=== PATIENT | female | born 1995 | race American Indian/Alaskan Native ===

== ENCOUNTER 2016-12-24 17:01 | Inpatient (IN) | payer MEDICAID ==
[2016-12-24] MEDS ORDERED: POLYCILLIN/NS 2 GM/100 ML 2 GM/100 ML BAG IV ONE (20:35)
[2016-12-24] MEDS ORDERED: MINERAL OIL PO PRN (20:35)
[2016-12-24] MEDS ORDERED: ZOFRAN IV PRN (20:35)
[2016-12-24] MEDS ORDERED: BRETHINE SUB-Q PRN (20:35)
[2016-12-24] MEDS ORDERED: XYLOCAINE 2% INFILTRATI ONE (20:35)
[2016-12-24] MEDS ORDERED: ePHEDrine SULFATE IV PRN (20:35)
[2016-12-24] MEDS ORDERED: BRETHINE IVP PRN (20:35)
--- NOTE | 2016-12-24 20:42 | History and Physical Report ---
History of Present Illness Date of examination: 12/24/16 Date of admission: 12/24/16 20:25 Chief complaint: My water broke at 4:30 History of present illness: 21-year-old presents with above complaints and issues, she is [facility] NURSE LIAISON patient. Patient was suspected rupture of membranes at 4:30 PM preceded by contractions. Denies vaginal bleeding plus movement. course has been unremarkable In triage, nitrazine was negative and pad was stained with brown fluid with no odor. Sono however shows CAITLYN of 4 She is GBS positive Past History Past Medical History: no pertinent history Past Surgical History: D&C (# 2 (2011 & 2014)) GAS PUMPER History: denies: chlamydia, gonorrhea, hepatitis B, hepatitis C, herpes, HIV , syphilis Social history: , full code. denies: smoking, alcohol abuse, prescription drug abuse, IV drug use - Obstetrical History Expected Date of Delivery: 12/29/16 Actual Gestation: 39 Week(s) 2 Day(s) : 3 Para: 0 Medications and Allergies Allergies Allergy/AdvReac Type Severity Reaction Status Date / Time No Known Allergies Allergy Unverified 12/24/16 17:56 Review of Systems Constitutional: no fever, no chills, no sweats, no fatigue, no weakness Cardiovascular: no chest pain, no lightheadedness, no shortness of breath, no dyspnea on exertion, no high blood pressure Respiratory: no cough with sputum, no shortness of breath, no dyspnea on exertion Gastrointestinal: no abdominal pain, no nausea, no vomiting Genitourinary: vaginal discharge, leakage of fluid, contractions (Intermittent painful contractions), no vaginal bleeding - Vital Signs Vital signs: Vital Signs Pulse BP 87 142/89 12/24/16 17:13 12/24/16 17:13 Temp Pulse Resp BP Pulse Ox 87 142/89 12/24/16 17:13 12/24/16 17:13 - Physical Exam Abdomen: Positive: normal appearance, soft. Negative: distention, tenderness, guarding, rigidity Genitourinary (Female): Positive: normal external genitalia Vagina: Positive: discharge Uterus: Positive: enlarged (EFW ~ 3800). Negative: tender Adnexa: both: normal Extremities: Positive: normal - Obstetrical FHR: category 1 Cervical Dilatation: 2 station: -3 Uterine Contraction Pattern: Regular Results All other labs normal. Assessment and Plan A: 21 y/o at 39+2 wks s/p SROM w/ Oligo -Cat 1 tracing P: -Admit -Routine labs -GBS prophylaxis -Epidural prn -Expectant mgt -Anticipate - Patient Problems (1) 39 weeks gestation of Current Visit: Yes Status: Acute (2) Spontaneous rupture of amniotic membranes Current Visit: Yes Status: Acute (3) Oligohydramnios due to rupture of membranes Current Visit: Yes Status: Acute
[2016-12-24] MEDS: LACTATED RINGERS 1,000 ML IV SCH (20:50)
[2016-12-24] MEDS ORDERED: PITOCin/NS 20 UNIT/1000ML DRIP 20 UNITS/1,000 ML BAG IV SCH (21:00)
[2016-12-24] MEDS ORDERED: PITOCin/NS 30 UNIT/500ML 30 UNITS/500 ML BAG IV SCH (21:00)
[2016-12-24 21:30] LABS: Hematocrit 32.9 % (30.3-42.9); Hemoglobin 10.6 gm/dl (10.1-14.3); Mean Corpuscular HGB Conc 32 % (30-34); Mean Corpuscular Volume 78 fl (79-97); Platelet Count 273 K/mm3 (140-440); Red Blood Count 4.23 M/mm3 (3.65-5.03); Red Cell Distribution Width 17.6 % (13.2-15.2); White Blood Count 14.7 K/mm3 (4.5-11.0)
[2016-12-24 21:36] LABS: Mean Corpuscular Hemoglobin 25 pg (28-32)
[2016-12-25] MEDS: POLYCILLIN/NS 1 GM/50 ML 1 GM/50 ML BAG IV SCH ×3 (01:45→09:35)
[2016-12-25] MEDS: SUBLIMAZE IV PRN ×3 (03:31→07:35)
[2016-12-25] MEDS ORDERED: TYLENOL PO ONE (03:34)
[2016-12-25] MEDS: LACTATED RINGERS 1,000 ML IV SCH (04:30)
--- NOTE | 2016-12-25 07:53 | Progress Note ---
Assessment and Plan A: 21 y/o at 39+3 wks s/p SROM w/ Oligo -Cat 1 tracing P: -Epidural now -Hold Pit for now due to logistics (ongoing C-S) -IUPC and re-start Pit after Epidural placed -Anticipate - Patient Problems (1) 39 weeks gestation of Current Visit: Yes Status: Acute (2) Spontaneous rupture of amniotic membranes Current Visit: Yes Status: Acute (3) Oligohydramnios due to rupture of membranes Current Visit: Yes Status: Acute Subjective - Subjective Date of service: 12/25/16 Interval history: Patient on Pit at 16 mu/min and very uncomfortable. She is 4 cm dilated and desires epidural Patient reports: movement normal, contractions, no new complaints, no loss of fluid, no vaginal bleeding Objective - Vital Signs Vital Signs: Vital Signs - 12hr 12/24/16 12/24/16 12/24/16 20:53 20:56 20:58 Temperature 99.8 F H Pulse Rate 89 89 Respiratory 18 Rate Blood Pressure 127/65 O2 Sat by Pulse 97 97 Oximetry 12/24/16 12/24/16 12/24/16 21:03 21:08 21:13 Temperature Pulse Rate 102 H 99 H 105 H Respiratory Rate Blood Pressure O2 Sat by Pulse 96 99 99 Oximetry 12/24/16 12/24/16 12/24/16 21:18 21:23 21:28 Temperature Pulse Rate 106 H 91 H 92 H Respiratory Rate Blood Pressure O2 Sat by Pulse 99 99 99 Oximetry 12/24/16 12/24/16 12/24/16 21:33 21:38 21:43 Temperature Pulse Rate 111 H 90 109 H Respiratory Rate Blood Pressure O2 Sat by Pulse 98 98 98 Oximetry 12/24/16 12/24/16 12/24/16 21:48 21:53 21:58 Temperature Pulse Rate 102 H 117 H 107 H Respiratory Rate Blood Pressure O2 Sat by Pulse 96 96 97 Oximetry 12/24/16 12/24/16 12/24/16 22:03 22:08 22:13 Temperature Pulse Rate 107 H 101 H 115 H Respiratory Rate Blood Pressure O2 Sat by Pulse 94 97 97 Oximetry 12/24/16 12/24/16 12/24/16 22:18 22:23 22:28 Temperature Pulse Rate 106 H 94 H 102 H Respiratory Rate Blood Pressure O2 Sat by Pulse 98 97 98 Oximetry 12/24/16 12/24/16 12/24/16 22:33 22:38 22:43 Temperature Pulse Rate 101 H 101 H 102 H Respiratory Rate Blood Pressure O2 Sat by Pulse 97 96 96 Oximetry 12/24/16 12/24/16 12/24/16 22:48 22:53 22:58 Temperature Pulse Rate 118 H 113 H 113 H Respiratory Rate Blood Pressure O2 Sat by Pulse 95 98 96 Oximetry 12/24/16 12/24/16 12/24/16 23:03 23:08 23:13 Temperature Pulse Rate 102 H 100 H 97 H Respiratory Rate Blood Pressure O2 Sat by Pulse 97 98 98 Oximetry 12/24/16 12/24/16 12/24/16 23:18 23:23 23:28 Temperature Pulse Rate 103 H 110 H 117 H Respiratory Rate Blood Pressure O2 Sat by Pulse 97 96 98 Oximetry 12/24/16 12/24/16 12/24/16 23:33 23:38 23:43 Temperature Pulse Rate 107 H 105 H 103 H Respiratory Rate Blood Pressure O2 Sat by Pulse 97 98 98 Oximetry 12/24/16 12/25/16 12/25/16 23:48 00:10 03:25 Temperature 98.2 F 102.8 F H Pulse Rate 107 H Respiratory 20 Rate Blood Pressure O2 Sat by Pulse 98 Oximetry 12/25/16 12/25/16 12/25/16 03:46 04:44 04:48 Temperature 102 F H Pulse Rate 136 H 118 H Respiratory Rate Blood Pressure 135/61 141/85 O2 Sat by Pulse Oximetry 12/25/16 12/25/16 12/25/16 05:15 05:46 06:01 Temperature 100.1 F H Pulse Rate 115 H 109 H Respiratory Rate Blood Pressure 139/85 130/59 O2 Sat by Pulse Oximetry 12/25/16 06:15 Temperature Pulse Rate 108 H Respiratory Rate Blood Pressure 135/72 O2 Sat by Pulse Oximetry - Exam FHR: category 1 Cervical Dilatation: 4 (Per RN exam) - Labs Labs: Abnormal Labs 12/24/16 20:20 WBC 14.7 H MCV 78 L MCH 25 L RDW 17.6 H Laboratory Results - last 24 hr 12/24/16 12/24/16 20:20 20:20 WBC 14.7 H RBC 4.23 Hgb 10.6 Hct 32.9 MCV 78 L MCH 25 L MCHC 32 RDW 17.6 H Plt Count 273 Blood Type O POSITIVE Antibody Screen Negative
[2016-12-25] MEDS ORDERED: ePHEDrine SULFATE ONE (09:41)
[2016-12-25] MEDS ORDERED: NARCAN 2 MG/2 ML IV PRN (10:29)
[2016-12-25] MEDS ORDERED: BENADRYL IV PRN (10:29)
[2016-12-25] MEDS ORDERED: ePHEDrine SULFATE IV PRN (10:29)
--- NOTE | 2016-12-25 10:29 | Anesthesia Consultation ---
Anesthesia Consult and Med Hx Date of service: 12/25/16 - Airway Anesthetic Teeth Evaluation: Good ROM Head & Neck: Adequate Mental/Hyoid Distance: Adequate - Pulmonary Exam CTA: Yes - Cardiac Exam Cardiac Exam: RRR - Pre-Operative Health Status ASA Pre-Surgery Classification: ASA2, Emergency Proposed Anesthetic Plan: Epidural, Spinal - Pulmonary Hx Asthma: No - Cardiovascular System Hx Hypertension: No - Central Nervous System Hx Seizures: No Hx Psychiatric Problems: No - Endocrine Hx Renal Disease: No Hx Hypothyroidism: No Hx Hyperthyroidism: No - Hematic Hx Anemia: Yes (current ) Hx Sickle Cell Disease: No - Other Systems Hx Alcohol Use: No Hx Obesity: Yes (morbid)
--- NOTE | 2016-12-25 10:32 | Ultrasound Report ---
ULTRASOUND OB LIMITED History: Rupture of membranes, leaking fluid Technique: Transabdominal ultrasound with Doppler interrogation. Gestation: Single Position: Cephalic Amniotic Fluid: Decreased CAITLYN = 4.5 cm Placenta: Fundal Placental Grade: 2 Heart Rate: 120 BPM
[2016-12-25] MEDS ORDERED: fentaNYL-BUPIV 2 MCG/ML-0.125% 200 MCG/100 ML BAG EPIDURAL SCH (11:00)
--- NOTE | 2016-12-25 12:43 | Progress Note ---
Assessment and Plan A: 21 y/o at 39+3 wks s/p SROM w/ Oligo -Cat 1 tracing P: -Allow patient to labour down -Anticipate - Patient Problems (1) 39 weeks gestation of Current Visit: Yes Status: Acute (2) Spontaneous rupture of amniotic membranes Current Visit: Yes Status: Acute (3) Oligohydramnios due to rupture of membranes Current Visit: Yes Status: Acute Subjective - Subjective Date of service: 12/25/16 Interval history: Patient fully dilated and 0 station Patient reports: new complaints, loss of fluid, movement normal, contractions, no vaginal bleeding Objective - Vital Signs Vital Signs: Vital Signs - 12hr 12/25/16 12/25/16 12/25/16 03:25 03:46 04:44 Temperature 102.8 F H Pulse Rate 136 H 118 H Respiratory 20 Rate Blood Pressure 135/61 141/85 O2 Sat by Pulse Oximetry 12/25/16 12/25/16 12/25/16 04:48 05:15 05:46 Temperature 102 F H Pulse Rate 115 H 109 H Respiratory Rate Blood Pressure 139/85 130/59 O2 Sat by Pulse Oximetry 12/25/16 12/25/16 12/25/16 06:01 06:15 09:39 Temperature 100.1 F H Pulse Rate 108 H 83 Respiratory Rate Blood Pressure 135/72 137/76 O2 Sat by Pulse Oximetry 12/25/16 12/25/16 12/25/16 09:49 09:51 09:52 Temperature Pulse Rate 126 H 120 H 120 H Respiratory Rate Blood Pressure 142/66 142/69 O2 Sat by Pulse 98 Oximetry 12/25/16 12/25/16 12/25/16 09:54 09:56 09:59 Temperature Pulse Rate 118 H 102 H 116 H Respiratory Rate Blood Pressure 148/72 139/63 142/81 O2 Sat by Pulse 100 85 Oximetry 12/25/16 12/25/16 12/25/16 10:02 10:04 10:06 Temperature Pulse Rate 96 H 88 81 Respiratory Rate Blood Pressure 126/69 123/60 125/60 O2 Sat by Pulse 99 Oximetry 12/25/16 12/25/16 12/25/16 10:08 10:09 10:10 Temperature Pulse Rate 77 81 71 Respiratory Rate Blood Pressure 125/59 126/63 O2 Sat by Pulse 98 Oximetry 12/25/16 12/25/16 12/25/16 10:12 10:14 10:16 Temperature Pulse Rate 85 76 85 Respiratory Rate Blood Pressure 124/63 126/63 119/63 O2 Sat by Pulse 99 Oximetry 12/25/16 12/25/16 12/25/16 10:18 10:19 10:24 Temperature Pulse Rate 87 78 83 Respiratory Rate Blood Pressure 114/63 O2 Sat by Pulse 100 100 Oximetry 12/25/16 12/25/16 12/25/16 10:29 10:34 10:39 Temperature Pulse Rate 86 82 77 Respiratory Rate Blood Pressure O2 Sat by Pulse 100 100 100 Oximetry 12/25/16 12/25/16 12/25/16 10:44 10:49 10:51 Temperature Pulse Rate 78 100 H 97 H Respiratory Rate Blood Pressure 130/68 O2 Sat by Pulse 100 100 Oximetry 12/25/16 12/25/16 12/25/16 10:54 10:59 11:04 Temperature Pulse Rate 104 H 94 H 83 Respiratory Rate Blood Pressure O2 Sat by Pulse 100 100 100 Oximetry 12/25/16 12/25/16 12/25/16 11:09 11:14 11:19 Temperature Pulse Rate 89 82 84 Respiratory Rate Blood Pressure O2 Sat by Pulse 100 100 100 Oximetry 12/25/16 12/25/16 12/25/16 11:20 11:24 11:25 Temperature Pulse Rate 88 82 84 Respiratory Rate Blood Pressure 128/66 O2 Sat by Pulse 100 91 Oximetry 12/25/16 12/25/16 12/25/16 11:29 11:50 12:21 Temperature Pulse Rate 87 86 88 Respiratory Rate Blood Pressure 121/65 123/65 O2 Sat by Pulse 93 Oximetry - Exam Abdomen: Present: normal appearance, soft, rigidity. Absent: distention, tenderness, guarding FHR: category 1 Cervical Dilatation: 10 - Labs Labs: Abnormal Labs 12/24/16 20:20 WBC 14.7 H MCV 78 L MCH 25 L RDW 17.6 H Laboratory Results - last 24 hr 12/24/16 12/24/16 20:20 20:20 WBC 14.7 H RBC 4.23 Hgb 10.6 Hct 32.9 MCV 78 L MCH 25 L MCHC 32 RDW 17.6 H Plt Count 273 Blood Type O POSITIVE Antibody Screen Negative
[2016-12-25] MEDS ORDERED: METHERGINE IM ONE (13:59)
--- NOTE | 2016-12-25 14:19 | Procedure Note ---
OB Delivery Note - Delivery Date of Delivery: 12/25/16 Surgeon: KANU CABRAL Estimated blood loss: other (600 mL) - Vaginal Delivery presentation: vertex Delivery position: OA Intrapartum events: meconium, foul smelling fluid, shoulder dystocia (1 min relieved by Noemi and suprapubic pressure) Delivery induction: none Delivery augmentation: pitocin Delivery monitor: external FHT, external uterine Route of delivery: Delivery placenta: spontaneous Delivery cord: 3 umbilical vessels Episiotomy: none Delivery laceration: 2nd degree Delivery repair: vicryl Anesthesia: epidural Delivery comments: Patient with poor maternal pushing effort. Shoulder dystocia identified during delivery. Mother asked to stop pushing, extra help asked him for in the room. Combination of suprapubic pressure and Noemi position, shoulder dystocia relieved delivered and handed to NICU Total duration of maneuvers about 1 minute - A at 1 minute: 7 at 5 minutes: 9 Gender: Male (Del @ 13:52, weight is 9#2 or 4139 g)
[2016-12-25] MEDS ORDERED: DERMOPLAST TP PRN (14:21)
[2016-12-25] MEDS ORDERED: NORCO 5/325 PO PRN (14:21)
[2016-12-25] MEDS ORDERED: TUCKS PAD TP PRN (14:21)
[2016-12-25] MEDS ORDERED: TYLENOL PO PRN (14:21)
[2016-12-25] MEDS ORDERED: LANSINOH TP PRN (14:21)
[2016-12-25] MEDS ORDERED: PHENERGAN PR PRN (14:21)
[2016-12-25] MEDS ORDERED: METHERGINE IM PRN (14:21)
[2016-12-25] MEDS ORDERED: ZOFRAN IV PRN (14:21)
[2016-12-25] MEDS ORDERED: BENADRYL PO PRN (14:21)
[2016-12-25] MEDS ORDERED: MILK OF MAGNESIA PO PRN (14:21)
[2016-12-25] MEDS ORDERED: DULCOLAX PR PRN (14:21)
[2016-12-25] MEDS ORDERED: PHENERGAN PO PRN (14:21)
--- NOTE | 2016-12-25 14:32 | Event Note ---
Date: 12/25/16 Patient with increased temperature antepartum and this continues . MAXIMUM TEMPERATURE 102. Patient had grayish vaginal discharge prior to delivery and this was noted with blood products. Plan is to start triple antibiotics with gentamicin (QD dosing), clinda and Amp at this time.
[2016-12-25] MEDS ORDERED: SENOKOT S PO SCH (15:00)
[2016-12-25] MEDS ORDERED: PITOCin/NS 20 UNIT/1000ML DRIP 20 UNITS/1,000 ML BAG IV SCH (15:00)
[2016-12-25] MEDS ORDERED: SODIUM CHLORIDE FLUSH SYRINGE 10 ML IV NR (15:00)
[2016-12-25] MEDS: MOTRIN PO SCH ×2 (15:28→21:00)
[2016-12-25] MEDS: CLEOCIN 600 MG/50 mL 600 MG/50 ML BAG IV SCH ×2 (16:05→22:00)
[2016-12-25 16:25] LABS: Anion Gap 19 mmol/L; BUN/Creatinine Ratio 8.88; Blood Urea Nitrogen 8 mg/dL (7-17); Calcium 8.4 mg/dL (8.4-10.2); Carbon Dioxide 16 mmol/L (22-30); Chloride 102.1 mmol/L (98-107); Glucose 112 mg/dL (65-100); Potassium 3.8 mmol/L (3.6-5.0); Sodium 133 mmol/L (137-145)
[2016-12-25] MEDS ORDERED: GARAMYCIN IV SCH (17:16)
[2016-12-25] MEDS ORDERED: NACL 0.9% IV SCH (17:16)
[2016-12-25] MEDS: NACL 0.9% IV SCH (18:53)
[2016-12-25] MEDS: GARAMYCIN IV SCH (18:53)
[2016-12-26 03:35] LABS: Hematocrit 27.9 % (30.3-42.9); Hemoglobin 9.1 gm/dl (10.1-14.3); Mean Corpuscular HGB Conc 33 % (30-34); Mean Corpuscular Volume 77 fl (79-97); Platelet Count 234 K/mm3 (140-440); Red Blood Count 3.62 M/mm3 (3.65-5.03); Red Cell Distribution Width 17.8 % (13.2-15.2)
[2016-12-26 03:47] LABS: Mean Corpuscular Hemoglobin 25 pg (28-32); White Blood Count 21.5 K/mm3 (4.5-11.0)
[2016-12-26 05:35] LABS: Anisocytosis 1+; Basophils % (Manual) 0 % (0.0-1.8); Blastocytes % (Manual) 0 %; Eosinophils % (Manual) 0 % (0.0-4.3); Hypochromasia 1+
[2016-12-26 05:36] LABS: Diff Status Complete; Elliptocytes Few; Polychromasia Few
[2016-12-26] MEDS: CLEOCIN 600 MG/50 mL 600 MG/50 ML BAG IV SCH ×2 (07:35→16:49)
--- NOTE | 2016-12-26 08:23 | Progress Note ---
Assessment and Plan PPD # 1 s/p -Doing well Issues -s/p Shoulder dystocia -s/p PPH -Chorio on triple antibiotics P: -Continue present care -Disposition after review tomorrow - Patient Problems (1) (normal spontaneous vaginal delivery) Current Visit: Yes Status: Acute (2) 39 weeks gestation of Current Visit: Yes Status: Acute (3) Spontaneous rupture of amniotic membranes Current Visit: Yes Status: Acute (4) Oligohydramnios due to rupture of membranes Current Visit: Yes Status: Acute (5) hemorrhage Current Visit: Yes Status: Acute Qualifiers: hemorrhage type: P (6) Chorioamnionitis, delivered, current hospitalization Current Visit: Yes Status: Acute Subjective - Subjective Date of service: 12/26/16 Principal diagnosis: PPD # 1 , shoulder dystocia, PPH, Chorio Interval history: Patient seen and examined, stable and well. Has been afebrile overnight, ambulating without difficulty, had adequate bowel bladder function pain well- controlled appropriate lochia flow Patient reports: appetite normal, voiding normally, pain well controlled, flatus , ambulating normally, no dizzy ambulation, no nauseated : doing well Objective - Vital Signs Latest vital signs: Vital Signs Temp Pulse Pulse Resp BP BP Pulse Ox 12/26/16 05:44 98.5 F 101 H 20 102/55 12/26/16 01:40 98.4 F 109 H 22 105/73 12/25/16 21:22 98.5 F 103 H 20 126/68 12/25/16 16:45 99.9 F H 94 H 20 108/64 12/25/16 16:00 105 H 128/60 96 12/25/16 15:55 96 H 93 12/25/16 15:53 110 H 99 12/25/16 15:48 109 H 97 12/25/16 15:45 111 H 122/56 12/25/16 15:43 113 H 97 12/25/16 15:38 115 H 96 12/25/16 15:37 114 H 131/66 12/25/16 15:20 113 H 110/53 12/25/16 15:19 124 H 97 12/25/16 15:16 117 H 143/74 12/25/16 15:01 126 H 123/58 12/25/16 14:45 122 H 140/62 12/25/16 14:43 128 H 100 12/25/16 14:38 126 H 100 12/25/16 14:33 123 H 148/67 99 12/25/16 14:31 123 H 149/64 12/25/16 14:28 136 H 100 12/25/16 14:23 132 H 99 12/25/16 14:16 127 H 123/59 12/25/16 14:08 141 H 122/57 12/25/16 13:51 150 H 153/67 12/25/16 13:40 71 99 12/25/16 13:33 134 H 98 12/25/16 13:32 176 H 93 12/25/16 13:28 148 H 100 12/25/16 13:23 124 H 99 12/25/16 13:21 117 H 138/65 12/25/16 13:00 18 130/69 12/25/16 12:52 89 130/69 17 12:21 88 123/65 12/25/16 11:50 86 121/65 12/25/16 11:29 87 93 12/25/16 11:25 84 91 12/25/16 11:24 82 100 17 11:20 88 128/66 12/25/16 11:19 84 100 12/25/16 11:14 82 100 12/25/16 11:09 89 100 17 11:04 83 100 17 10:59 94 H 100 12/25/16 10:54 104 H 100 12/25/16 10:51 97 H 130/68 12/25/16 10:49 100 H 100 17 10:44 78 100 17 10:39 77 100 17 10:34 82 100 17 10:29 86 100 17 10:24 83 100 17 10:19 78 100 17 10:18 87 114/63 17 10:16 85 119/63 17 10:14 76 126/63 99 17 10:12 85 124/63 12/25/17 10:10 71 126/63 17 10:09 81 98 17 10:08 77 125/59 12/25/16 10:06 81 125/60 12/25/16 10:04 88 123/60 99 12/25/16 10:02 96 H 126/69 12/25/16 09:59 116 H 142/81 85 12/25/16 09:56 102 H 139/63 12/25/16 09:54 118 H 148/72 100 12/25/16 09:52 120 H 142/69 12/25/16 09:51 120 H 142/66 12/25/16 09:49 126 H 98 12/25/16 09:39 83 137/76 Intake and Output 12/25/16 12/26/16 12/26/16 22:59 06:59 14:59 Intake Total 1114.5 Balance 1114.5 Intake: IV 1114.5 CLEOCIN 600 MG/50 mL 600 90 mg In 50 ml @ 100 mls/hr IV Q8HR LUIS Rx#:[id number] Garamycin 500 mg In NaCl 224.5 0.9% 100 ml @ 200 mls/hr IV Q24H LUIS Rx#:[id number] PITOCin/NS 20 UNIT/1000ML 300 DRIP 20 units In 1,000 ml @ 250 mls/hr IV TITR LUIS Rx#:[id number] PITOCin/NS 30 UNIT/500ML 500 30 units In 500 ml @ 1 MILLIUNITS/MIN 1 mls/hr IV TITR LUIS Rx#:[id number] - Exam Abdomen: Present: normal appearance, soft. Absent: distention, tenderness, guarding, rigidity - Labs Labs: Abnormal lab results 12/25/16 12/26/16 Range/Units 15:51 03:19 WBC 21.5 H (4.5-11.0) K/mm3 RBC 3.62 L (3.65-5.03) M/mm3 Hgb 9.1 L (10.1-14.3) gm/dl Hct 27.9 L (30.3-42.9) % MCV 77 L (79-97) fl MCH 25 L (28-32) pg RDW 17.8 H (13.2-15.2) % Seg Neuts % (Manual) 86.0 H (40.0-70.0) % Lymphocytes % (Manual) 6.0 L (13.4-35.0) % Seg Neutrophils # Man 18.5 H (1.8-7.7) K/mm3 Sodium 133 L (137-145) mmol/L Carbon Dioxide 16 L (22-30) mmol/L Glucose 112 H (65-100) mg/dL
[2016-12-26] MEDS: PRENATAL VITAMIN PO SCH (12:27)
[2016-12-26] MEDS: MOTRIN PO SCH ×2 (12:27→20:25)
[2016-12-26] MEDS: FEOSOL PO SCH (12:27)
[2016-12-26] MEDS: COLACE PO SCH (12:27)
[2016-12-26] MEDS: GARAMYCIN IV SCH (19:40)
[2016-12-26] MEDS: NACL 0.9% IV SCH (19:40)
[2016-12-27] MEDS ORDERED: BOOSTRIX IM ONE (06:00)
[2016-12-27 07:37] LABS: Basophils % (Auto) 0.3 % (0.0-1.8); Eosinophils % (Auto) 0.9 % (0.0-4.3); Hematocrit 27.4 % (30.3-42.9); Hemoglobin 8.7 gm/dl (10.1-14.3); Mean Corpuscular HGB Conc 32 % (30-34); Mean Corpuscular Volume 78 fl (79-97); Platelet Count 250 K/mm3 (140-440); Red Blood Count 3.52 M/mm3 (3.65-5.03); Red Cell Distribution Width 17.8 % (13.2-15.2); White Blood Count 17.2 K/mm3 (4.5-11.0)
[2016-12-27 07:39] LABS: Mean Corpuscular Hemoglobin 25 pg (28-32)
[2016-12-27] MEDS: COLACE PO SCH ×2 (10:33→10:35)
[2016-12-27] MEDS: PRENATAL VITAMIN PO SCH (10:33)
[2016-12-27] MEDS: FEOSOL PO SCH (10:33)
--- NOTE | 2016-12-27 11:28 | Progress Note ---
Assessment and Plan PPD # 2 s/p -Doing well Issues -s/p Shoulder dystocia -s/p PPH -Chorio on triple antibiotics P: -Discharge home -In clinic in 2 weeks - Patient Problems (1) (normal spontaneous vaginal delivery) Current Visit: Yes Status: Acute (2) 39 weeks gestation of Current Visit: Yes Status: Acute (3) Spontaneous rupture of amniotic membranes Current Visit: Yes Status: Acute (4) Oligohydramnios due to rupture of membranes Current Visit: Yes Status: Acute (5) hemorrhage Current Visit: Yes Status: Acute Qualifiers: hemorrhage type: P (6) Chorioamnionitis, delivered, current hospitalization Current Visit: Yes Status: Acute Subjective - Subjective Date of service: 12/27/16 Principal diagnosis: PPD # 2 , shoulder dystocia, PPH, Chorio Interval history: Patient seen and examined, stable and well. Has been afebrile x ~ 48 hrs, ambulating without difficulty, had adequate bowel bladder function pain well- controlled appropriate lochia flow Patient reports: appetite normal, voiding normally, pain well controlled, flatus , ambulating normally, no dizzy ambulation, no nauseated [place]: doing well Objective - Vital Signs Latest vital signs: Vital Signs Temp Pulse Resp BP 12/27/16 08:14 98.1 F 90 20 126/74 12/27/16 01:25 97.6 F 91 H 18 115/59 12/26/16 16:14 97.8 F 92 H 22 100/50 Intake and Output 12/26/16 12/27/16 12/27/16 22:59 06:59 14:59 Intake Total 1200 420 840 Balance 1200 420 840 Intake: Oral 240 120 Intake, Free Water 960 420 720 Other: Total, Intake Amount 240 120 # Voids Void 1 1 1 - Exam Abdomen: Present: normal appearance, soft. Absent: distention, tenderness, guarding, rigidity - Labs Labs: Abnormal lab results 12/27/16 Range/Units 06:50 WBC 17.2 H (4.5-11.0) K/mm3 RBC 3.52 L (3.65-5.03) M/mm3 Hgb 8.7 L (10.1-14.3) gm/dl Hct 27.4 L (30.3-42.9) % MCV 78 L (79-97) fl MCH 25 L (28-32) pg RDW 17.8 H (13.2-15.2) % [place] % (Auto) 8.5 H (0.0-7.3) % [place] # 1.5 H (0.0-0.8) K/mm3 Seg Neutrophils % 73.2 H (40.0-70.0) % Seg Neutrophils # 12.6 H (1.8-7.7) K/mm3
--- NOTE | 2016-12-27 11:30 | Discharge Summary ---
Providers - Providers Date of Admission: 12/24/16 20:25 Date of discharge: 12/27/16 Attending physician: KANU CABRAL Primary care physician: KANU CABRAL Hospitalization Reason for admission: rupture of membranes Delivery: Episiotomy: none Laceration: 2nd degree Incision: dry, intact Other procedures: none complications: none Discharge diagnosis: IUP at term delivered baby: male Hospital course: Uncomplicated hospital course Condition at discharge: Good Disposition: DISCHARGED TO HOME OR SELFCARE - Discharge Diagnoses (1) (normal spontaneous vaginal delivery) Status: Acute (2) 39 weeks gestation of Status: Acute (3) Spontaneous rupture of amniotic membranes Status: Acute (4) Oligohydramnios due to rupture of membranes Status: Acute (5) hemorrhage Status: Acute Qualifiers: hemorrhage type: P (6) Chorioamnionitis, delivered, current hospitalization Status: Acute Plan - Discharge Medications Prescriptions: Clindamycin [Clindamycin CAP] 300 mg PO Q6H #40 capsule HYDROcodone/APAP 5-325 [[place] 5/325] 1 each PO Q6HR PRN #30 tablet PRN Reason: Pain Ibuprofen [Motrin 600 MG tab] 600 mg PO Q8H PRN #30 tablet PRN Reason: Pain Multivitamin with Iron [Multivitamins with Iron] 1 each PO DAILY #30 tablet - Provider Discharge Summary Activity: no sex for 6 weeks, no heavy lifting 4 weeks, no strenuous exercise Diet: routine Additional instructions: [] Smoking cessation referral if applicable(refer to patient education folder for contact #) [] Refer to [facility] Booklet Call your doctor immediately for: * Fever > 100.5 * Heavy vaginal bleeding ( >1 pad per hour) * Severe persistent headache * Shortness of breath * Reddened, hot, painful area to leg or breast * Drainage or odor from incision. * Keep incision clean and dry at all times and follow doctor's instructions regarding bathing/showering - Follow up plan Follow up: KANU CABRAL MD [Primary Care Provider] - 10 Days Forms: Work/School Excuse Out Patient, Work/School Release Form
[2016-12-27] MEDS ORDERED: FLUARIX QUAD 2016-2017(36 MOS+) IM ONE (12:00)
[2016-12-27 15:24] VITALS: BP 128/62
== END 2016-12-27 14:45 | disposition home or self-care (01) | DRG 774 ==
LOC: TRG 17:01 → LD 20:25 → TRG 20:25 → OB 12-25 16:43
PROVIDERS: ADMIT Obstetrics & Gynecology Gynecology; ATTEND Obstetrics & Gynecology Gynecology
PROC: 10E0XZZ Delivery of Products of Conception, External Approach (ICD-10-PCS; principal; 2016-12-25)
PROC: 0KQM0ZZ Repair Perineum Muscle, Open Approach (ICD-10-PCS; 2016-12-25)
PROC: 3E0S3CZ (ICD-10-PCS; 2016-12-25)
PROC: 00HU33Z Insertion of Infusion Device into Spinal Canal, Percutaneous Approach (ICD-10-PCS; 2016-12-25)
DX: O42.02 Full-term premature rupture of membranes, onset of labor within 24 hours of rupture (principal); O72.1 Other immediate postpartum hemorrhage; O70.1 Second degree perineal laceration during delivery; O41.1230 Chorioamnionitis, third trimester, not applicable or unspecified; O41.03X0 Oligohydramnios, third trimester, not applicable or unspecified; O99.214 Obesity complicating childbirth; O77.0 Labor and delivery complicated by meconium in amniotic fluid; O66.0 Obstructed labor due to shoulder dystocia; Z37.0 Single live birth; E66.01 Morbid (severe) obesity due to excess calories; Z68.41 Body mass index [BMI] 40.0-44.9, adult; Z3A.39 39 weeks gestation of pregnancy
CPT/HCPCS: 36415; 76815; 80048; 85007; 85025; 85027; 86850; 86900; 86901; 90471; 90686; 90715; 99211; G0008; G0463; J0290; J1580; J2210; J2590; J3010; J7120

== ENCOUNTER 2020-10-26 16:17 | Emergency (ER) | payer MEDICAID ==
[2020-10-26] MEDS ORDERED: ONDANSETRON 4 MG/2 ML INJ IV ONE (17:58)
--- NOTE | 2020-10-26 17:59 | Event Note ---
ED Screening Note Date of service: 10/26/20 Time: 17:55 ED Screening Note: 24-year-old -[place] female presents to the emergency room for nausea vomiting for over a week. Patient states she is not able to keep anything down. Patient denies any abdominal pain. She is 4 para 2 last menstrual period was September 08, 2020. She is followed by [facility]. This initial assessment/diagnostic orders/clinical plan/treatment(s) is/are subject to change based on patients health status, clinical progression and re- assessment by fellow clinical providers in the ED. Further treatment and workup at subsequent clinical providers discretion. Patient/guardian urged not to elope from the ED as their condition may be serious if not clinically assessed and managed. Initial orders include: CBC CMP urinalysis IV normal saline Zofran 4 mg hCG serum
[2020-10-26] MEDS ORDERED: SODIUM CHLORIDE 0.9% 1000 ML 1,000 ML ONE (18:36)
[2020-10-26 18:40] LABS: Hematocrit 47.1 % (30.3-42.9); Hemoglobin 15.9 gm/dl (10.1-14.3); Mean Corpuscular HGB Conc 34 % (30-34); Mean Corpuscular Volume 81 fl (79-97); Platelet Count 381 K/mm3 (140-440); Red Blood Count 5.83 M/mm3 (3.65-5.03); Red Cell Distribution Width 16.8 % (13.2-15.2)
[2020-10-26 18:42] LABS: Alanine Aminotransferase 211 units/L (7-56); Albumin 4.9 g/dL (3.9-5); Blood Urea Nitrogen 16 mg/dL (7-17); Calcium 10.4 mg/dL (8.4-10.2); Hemolysis Index 66
[2020-10-26 18:49] LABS: BUN/Creatinine Ratio 27
[2020-10-26] MEDS ORDERED: SODIUM CHLORIDE 0.9% 1000 ML 1,000 ML IV ONE ×3 (19:18→22:23)
[2020-10-26 19:32] LABS: RBC Morphology Normal; Total Cells Counted 100
--- NOTE | 2020-10-26 19:44 | Emergency Department Report ---
ED Female HPI - General Chief complaint: Nausea/Vomiting/Diarrhea Stated complaint: /DEHYDRATED/THROWING UP BLOOD Time Seen by Provider: 10/26/20 19:19 Source: patient Mode of arrival: Ambulatory Limitations: No Limitations - History of Present Illness Initial comments: CC: , nausea, vomiting blood HPI: THis is a 24 yo female without significant past medical history who presents with new diagnosis of and 2 weeks of vomiting. She has intermittent hematemesis. Vomitus is streaked with blood,. She denies pain. She was diagnosed with at primary clinical research analyst [facility]. Last menstrual period September 08, 2020 Patient has 2 children history of 1 miscarriage\2 abortions Complaint: other (Nausea vomiting hematemesis) -: Gradual, week(s) (2 weeks) Severity: severe Severity scale (0 -10): 0 Quality: other (No pain) Consistency: constant Improves with: none Worsens with: none Are you Now?: Yes Last Menstrual Period: 09/08/20 EDC: 06/15/21 - Related Data Previous Rx's Medication Instructions Recorded Last Taken Type HYDROcodone/APAP 5-325 [[place] 1 each PO Q6HR PRN #30 tablet 12/25/16 Unknown Rx 5/325] Ibuprofen [Motrin 600 MG tab] 600 mg PO Q8H PRN #30 tablet 12/25/16 Unknown Rx Multivitamin with Iron 1 each PO DAILY #30 tablet 12/25/16 Unknown Rx [Multivitamins with Iron] Clindamycin [Clindamycin CAP] 300 mg PO Q6H #40 capsule 12/27/16 Unknown Rx Ondansetron [Zofran Odt] 4 mg PO Q8HR PRN #20 tab.rapdis 10/26/20 Unknown Rx Allergies Allergy/AdvReac Type Severity Reaction Status Date / Time No Known Allergies Allergy Verified 12/24/16 20:42 ED Review of Systems ROS: Stated complaint: /DEHYDRATED/THROWING UP BLOOD Other details as noted in HPI Comment: All other systems reviewed and negative Constitutional: denies: fever, malaise Gastrointestinal: nausea, vomiting, hematemesis. denies: abdominal pain, diarrhea ED Past Medical Hx - Past Medical History Previous Medical History?: Yes Hx Hypertension: No Hx Diabetes: No Hx Deep Vein Thrombosis: No Hx Renal Disease: No Hx Sickle Cell Disease: No Hx Seizures: No Hx Asthma: No Hx HIV: No - Surgical History Past Surgical History?: Yes Additional Surgical History: Abortions - Social History Smoking Status: Never Smoker Substance Use Type: None - Medications Home Medications: Home Medications Medication Instructions Recorded Confirmed Last Taken Type HYDROcodone/APAP 5-325 [[place] 1 each PO Q6HR PRN #30 tablet 12/25/16 Unknown Rx 5/325] Ibuprofen [Motrin 600 MG tab] 600 mg PO Q8H PRN #30 tablet 12/25/16 Unknown Rx Multivitamin with Iron 1 each PO DAILY #30 tablet 12/25/16 Unknown Rx [Multivitamins with Iron] Clindamycin [Clindamycin CAP] 300 mg PO Q6H #40 capsule 12/27/16 Unknown Rx Ondansetron [Zofran Odt] 4 mg PO Q8HR PRN #20 tab.rapdis 10/26/20 Unknown Rx ED Physical Exam - General Limitations: No Limitations General appearance: alert, in no apparent distress, other (Constantly spitting into emesis bag) - Head Head exam: Present: atraumatic, normocephalic - Eye Eye exam: Present: normal appearance - ENT ENT exam: Present: mucous membranes moist - Neck Neck exam: Present: normal inspection, full ROM - Respiratory Respiratory exam: Present: normal lung sounds bilaterally. Absent: respiratory distress, wheezes, rales, rhonchi - Cardiovascular Cardiovascular Exam: Present: normal rhythm, tachycardia, normal heart sounds. Absent: systolic murmur, diastolic murmur, rubs, gallop - GI/Abdominal GI/Abdominal exam: Present: soft, normal bowel sounds. Absent: distended, tenderness, guarding, rebound - Extremities Exam Extremities exam: Present: normal inspection - Neurological Exam Neurological exam: Present: alert, oriented X3 - Psychiatric Psychiatric exam: Present: normal affect, normal mood - Skin Skin exam: Present: warm, dry, intact, normal color. Absent: rash ED Course Vital Signs 10/26/20 10/26/20 16:40 17:01 Temperature 98.5 F 98.5 F Pulse Rate 145 H Respiratory 20 18 Rate Blood Pressure 146/96 146/96 O2 Sat by Pulse 99 97 Oximetry ED Medical Decision Making - Lab Data Result diagrams: 10/26/20 18:10 10/26/20 18:10 - Medical Decision Making 1. Hyperemesis gravidarum: Patient received IV fluid therapy in emergency department. No evidence of DB. 2. Reported hematemesis: No current GI bleed or hematemesis observed. H&H within normal limits. Possible esophagitis versus Viki-Clayton tear. 3. Leukocytosis: No indication of infectious process or intra-abdominal inflammatory disease. Leukocytosis is likely reactive to severe dehydration. 4. Abnormal liver function test: Patient states that she has had abnormal liver function labs during previous . Fatty liver is a consideration. Hepatitis is a consideration. Patient understands follow-up with her obst etrician regarding these abnormalities. Critical care attestation.: If time is entered above; I have spent that time in minutes in the direct care of this critically ill patient, excluding procedure time. ED Disposition Clinical Impression: Hyperemesis gravidarum, Hematemesis, Abnormal liver enzymes Disposition: DC- TO HOME OR SELFCARE Is pt being admited?: No Does the pt Need Aspirin: No Condition: Stable Instructions: Liver Function Tests, Hyperemesis Gravidarum Additional Instructions: Your liver function labs were abnormal. Please have your clinical research analyst recheck t hese values. Prescriptions: Ondansetron [Zofran Odt] 4 mg PO Q8HR PRN #20 tab.rapdis PRN Reason: Nausea
[2020-10-26 19:58] LABS: Bilirubin,Urine NEG (Negative); Blood,Urine NEG (Negative); Color,Urine Amber (Yellow); Hyaline Casts,Urine 1 /LPF; Mucus,Urine FEW /HPF
[2020-10-26 19:59] LABS: Protein,Urine >500 mg/dL (Negative)
[2020-10-26 20:20] LABS: HCG Qualitative,Urine Positive (Negative)
[2020-10-27 00:01] VITALS: BP 116/71
== END 2020-10-27 00:05 | disposition home or self-care (01) ==
LOC: ED 16:17
DX: O21.0 Mild hyperemesis gravidarum (principal); O26.891 Other specified pregnancy related conditions, first trimester; K92.0 Hematemesis; R94.5 Abnormal results of liver function studies; Z3A.01 Less than 8 weeks gestation of pregnancy; Z98.890 Other specified postprocedural states; Z79.1 Long term (current) use of non-steroidal anti-inflammatories (NSAID); Z79.899 Other long term (current) drug therapy
CPT/HCPCS: 36415; 80053; 81001; 81025; 85007; 85025; 87086; 96361; 96374; 99283; J2405; J7030

== ENCOUNTER 2020-11-30 19:15 | Emergency (ER) | payer MEDICAID ==
[2020-11-30] MEDS ORDERED: ONDANSETRON 4 MG ODT TAB PO ONE (20:12)
[2020-11-30] MEDS ORDERED: ACETAMINOPHEN 325 MG TAB PO ONE (20:12)
[2020-11-30] MEDS ORDERED: ALUM-MAG HYDROXIDE-SIMETHICONE 200-200-20MG/5ML ORAL LIQD 30 ML PO ONE (20:12)
[2020-11-30 20:43] LABS: Basophils # (Auto) 0.2 K/mm3 (0.0-0.1); Basophils % (Auto) 1.2 % (0.0-1.8); Eosinophils # (Auto) 0.1 K/mm3 (0.0-0.4); Eosinophils % (Auto) 0.5 % (0.0-4.3); Hematocrit 36.5 % (30.3-42.9); Hemoglobin 12.5 gm/dl (10.1-14.3); Lymphocytes # (Auto) 3.2 K/mm3 (1.2-5.4); Lymphocytes % (Auto) 20.3 % (13.4-35.0); Mean Corpuscular HGB Conc 34 % (30-34); Mean Corpuscular Volume 82 fl (79-97); Monocytes % (Auto) 6.2 % (0.0-7.3); Platelet Count 313 K/mm3 (140-440); Red Blood Count 4.46 M/mm3 (3.65-5.03); Red Cell Distribution Width 16.8 % (13.2-15.2)
--- NOTE | 2020-11-30 20:45 | Emergency Department Report ---
ED General Adult HPI - General Chief complaint: Chest Pain Stated complaint: CHEST PAIN; ABD PAIN; BACK PAIN Time Seen by Provider: 11/30/20 20:07 Source: patient Mode of arrival: Ambulatory Limitations: No Limitations - History of Present Illness Initial comments: Patient is a 25-year-old female presents emergency room complaints of upper abdominal pain that began earlier today. She states that she sneezed and exacerbated all of her symptoms. she states that the upper abdominal pain radiates up into her chest. she states that she has also had lower back discomfort for a week. She states that when she states that exacerbated her low back pain and occasionally she gets back spasms. She denies any fall or injury. She states that she also has nausea and has been taking Reglan. She denies any shortness of breath, pleuritic chest pain, leg swelling, fever, vomiting, diarrhea, urinary symptoms, abnormal vaginal discharge, vaginal bleeding. She is currently 12 weeks . No past medical history. No allergies to medicines. Severity scale (0 -10): 9 - Related Data Previous Rx's Medication Instructions Recorded Last Taken Type HYDROcodone/APAP 5-325 [[place] 1 each PO Q6HR PRN #30 tablet 12/25/16 Unknown Rx 5/325] Ibuprofen [Motrin 600 MG tab] 600 mg PO Q8H PRN #30 tablet 12/25/16 Unknown Rx Multivitamin with Iron 1 each PO DAILY #30 tablet 12/25/16 Unknown Rx [Multivitamins with Iron] Clindamycin [Clindamycin CAP] 300 mg PO Q6H #40 capsule 12/27/16 Unknown Rx Ondansetron [Zofran Odt] 4 mg PO Q8HR PRN #20 tab.rapdis 10/26/20 Unknown Rx Acetaminophen [Tylenol] 650 mg PO Q8HR PRN #20 capsule 11/30/20 Unknown Rx Famotidine [Pepcid] 40 mg PO QHS #30 tablet 11/30/20 Unknown Rx Mag Hydrox/Aluminum Hyd/Simeth 10 ml PO TID PRN #1 bottle 11/30/20 Unknown Rx [Maalox Advanced Suspension] Ondansetron [Zofran Odt] 4 mg PO Q8HR PRN #10 tab.rapdis 11/30/20 Unknown Rx Allergies Allergy/AdvReac Type Severity Reaction Status Date / Time No Known Allergies Allergy Verified 12/24/16 20:42 ED Review of Systems ROS: Stated complaint: CHEST PAIN; ABD PAIN; BACK PAIN Other details as noted in HPI Comment: All other systems reviewed and negative ED Past Medical Hx - Past Medical History Hx Hypertension: No Hx Diabetes: No Hx Deep Vein Thrombosis: No Hx Renal Disease: No Hx Sickle Cell Disease: No Hx Seizures: No Hx Asthma: No Hx HIV: No - Surgical History Additional Surgical History: Abortions - Social History Smoking Status: Never Smoker Substance Use Type: None - Medications Home Medications: Home Medications Medication Instructions Recorded Confirmed Last Taken Type HYDROcodone/APAP 5-325 [[place] 1 each PO Q6HR PRN #30 tablet 12/25/16 Unknown Rx 5/325] Ibuprofen [Motrin 600 MG tab] 600 mg PO Q8H PRN #30 tablet 12/25/16 Unknown Rx Multivitamin with Iron 1 each PO DAILY #30 tablet 12/25/16 Unknown Rx [Multivitamins with Iron] Clindamycin [Clindamycin CAP] 300 mg PO Q6H #40 capsule 12/27/16 Unknown Rx Ondansetron [Zofran Odt] 4 mg PO Q8HR PRN #20 tab.rapdis 10/26/20 Unknown Rx Acetaminophen [Tylenol] 650 mg PO Q8HR PRN #20 capsule 11/30/20 Unknown Rx Famotidine [Pepcid] 40 mg PO QHS #30 tablet 11/30/20 Unknown Rx Mag Hydrox/Aluminum Hyd/Simeth 10 ml PO TID PRN #1 bottle 11/30/20 Unknown Rx [Maalox Advanced Suspension] Ondansetron [Zofran Odt] 4 mg PO Q8HR PRN #10 tab.rapdis 11/30/20 Unknown Rx ED Physical Exam - General Limitations: No Limitations General appearance: alert, in no apparent distress - Head Head exam: Present: atraumatic, normocephalic - Eye Eye exam: Present: normal appearance - ENT ENT exam: Present: mucous membranes moist - Respiratory Respiratory exam: Present: normal lung sounds bilaterally. Absent: respiratory distress, wheezes, rales, rhonchi, stridor, chest wall tenderness, accessory mus west use, decreased breath sounds, prolonged expiratory - Cardiovascular Cardiovascular Exam: Present: regular rate, normal rhythm, normal heart sounds. Absent: systolic murmur, diastolic murmur, rubs, gallop - GI/Abdominal GI/Abdominal exam: Present: soft, normal bowel sounds. Absent: distended, tenderness, guarding, rebound, rigid - Extremities Exam Extremities exam: Absent: pedal edema, calf tenderness - Neurological Exam Neurological exam: Present: alert, oriented X3 - Psychiatric Psychiatric exam: Present: normal affect, normal mood - Skin Skin exam: Present: warm, dry, intact ED Course Vital Signs 11/30/20 11/30/20 11/30/20 20:01 22:13 22:17 Temperature 99.1 F Pulse Rate 99 H Respiratory 18 18 18 Rate Blood Pressure 153/82 [Right] O2 Sat by Pulse 97 100 Oximetry 11/30/20 23:29 Temperature Pulse Rate 88 Respiratory 17 Rate Blood Pressure 141/78 [Right] O2 Sat by Pulse 97 Oximetry ED Medical Decision Making - Lab Data Result diagrams: 11/30/20 20:23 11/30/20 20:23 Lab Results 11/30/20 11/30/20 11/30/20 Range/Units 20:23 20:23 20:23 WBC 15.7 H (4.5-11.0) K/mm3 RBC 4.46 (3.65-5.03) M/mm3 Hgb 12.5 (10.1-14.3) gm/dl Hct 36.5 (30.3-42.9) % MCV 82 (79-97) fl MCH 28 (28-32) pg MCHC 34 (30-34) % RDW 16.8 H (13.2-15.2) % Plt Count 313 (140-440) K/mm3 Lymph % (Auto) 20.3 (13.4-35.0) % Pope % (Auto) 6.2 (0.0-7.3) % Eos % (Auto) 0.5 (0.0-4.3) % Baso % (Auto) 1.2 (0.0-1.8) % Lymph # (Auto) 3.2 (1.2-5.4) K/mm3 Pope # (Auto) 1.0 H (0.0-0.8) K/mm3 Eos # (Auto) 0.1 (0.0-0.4) K/mm3 Baso # (Auto) 0.2 H (0.0-0.1) K/mm3 Seg Neutrophils % 71.8 H (40.0-70.0) % Seg Neutrophils # 11.3 H (1.8-7.7) K/mm3 Sodium 134 L (137-145) mmol/L Potassium 4.0 (3.6-5.0) mmol/L Chloride 98.7 (98-107) mmol/L Carbon Dioxide 24 (22-30) mmol/L Anion Gap 15 mmol/L BUN 12 (7-17) mg/dL Creatinine 0.6 (0.6-1.2) mg/dL Estimated GFR > 60 ml/min BUN/Creatinine Ratio 20 % Glucose 103 H (65-100) mg/dL Calcium 10.1 (8.4-10.2) mg/dL Total Bilirubin < 0.20 (0.1-1.2) mg/dL AST 17 (5-40) units/L ALT 27 (7-56) units/L Alkaline Phosphatase 115 (35-129) units/L Troponin T < 0.010 (0.00-0.029) ng/mL Total Protein 7.7 (6.3-8.2) g/dL Albumin 3.8 L (3.9-5) g/dL Albumin/Globulin Ratio 1.0 % Lipase 38 (13-60) units/L Urine Color (Yellow) Urine Turbidity (Clear) Urine pH (5.0-7.0) Ur Specific [place] (1.003-1.030) Urine Protein (Negative) mg/dL Urine Glucose (UA) (Negative) mg/dL Urine Ketones (Negative) mg/dL Urine Blood (Negative) Urine Nitrite (Negative) Urine Bilirubin (Negative) Urine Urobilinogen (<2.0) mg/dL Ur Leukocyte Esterase (Negative) Urine WBC (Auto) (0.0-6.0) /HPF Urine RBC (Auto) (0.0-6.0) /HPF U Epithel Cells (Auto) (0-13.0) /HPF Urine Yeast (Budding) /HPF 11/30/20 Range/Units 20:50 WBC (4.5-11.0) K/mm3 RBC (3.65-5.03) M/mm3 Hgb (10.1-14.3) gm/dl Hct (30.3-42.9) % MCV (79-97) fl MCH (28-32) pg MCHC (30-34) % RDW (13.2-15.2) % Plt Count (140-440) K/mm3 Lymph % (Auto) (13.4-35.0) % Pope % (Auto) (0.0-7.3) % Eos % (Auto) (0.0-4.3) % Baso % (Auto) (0.0-1.8) % Lymph # (Auto) (1.2-5.4) K/mm3 Pope # (Auto) (0.0-0.8) K/mm3 Eos # (Auto) (0.0-0.4) K/mm3 Baso # (Auto) (0.0-0.1) K/mm3 Seg Neutrophils % (40.0-70.0) % Seg Neutrophils # (1.8-7.7) K/mm3 Sodium (137-145) mmol/L Potassium (3.6-5.0) mmol/L Chloride (98-107) mmol/L Carbon Dioxide (22-30) mmol/L Anion Gap mmol/L BUN (7-17) mg/dL Creatinine (0.6-1.2) mg/dL Estimated GFR ml/min BUN/Creatinine Ratio % Glucose (65-100) mg/dL Calcium (8.4-10.2) mg/dL Total Bilirubin (0.1-1.2) mg/dL AST (5-40) units/L ALT (7-56) units/L Alkaline Phosphatase (35-129) units/L Troponin T (0.00-0.029) ng/mL Total Protein (6.3-8.2) g/dL Albumin (3.9-5) g/dL Albumin/Globulin Ratio % Lipase (13-60) units/L Urine Color Yellow (Yellow) Urine Turbidity Cloudy (Clear) Urine pH 8.0 H (5.0-7.0) Ur Specific [place] 1.006 (1.003-1.030) Urine Protein <15 mg/dl (Negative) mg/dL Urine Glucose (UA) Neg (Negative) mg/dL Urine Ketones Neg (Negative) mg/dL Urine Blood Neg (Negative) Urine Nitrite Neg (Negative) Urine Bilirubin Neg (Negative) Urine Urobilinogen < 2.0 (<2.0) mg/dL Ur Leukocyte Esterase Neg (Negative) Urine WBC (Auto) 9.0 H (0.0-6.0) /HPF Urine RBC (Auto) 3.0 (0.0-6.0) /HPF U Epithel Cells (Auto) 1.0 (0-13.0) /HPF Urine Yeast (Budding) 3+ /HPF Vital Signs 11/30/20 11/30/20 11/30/20 20:01 22:13 22:17 Temperature 99.1 F Pulse Rate 99 H Respiratory 18 18 18 Rate Blood Pressure 153/82 [Right] O2 Sat by Pulse 97 100 Oximetry 11/30/20 23:29 Temperature Pulse Rate 88 Respiratory 17 Rate Blood Pressure 141/78 [Right] O2 Sat by Pulse 97 Oximetry - EKG Data EKG shows normal: sinus rhythm, axis, intervals, QRS complexes, ST-T waves Rate: normal - Radiology Data Radiology results: report reviewed Ordering Physician: BLANQUITA VELASQUEZ Date of Service: 11/30/20 Procedure(s): XR chest routine 2V Accession Number(s): [id number] cc: BLANQUITA VELASQUEZ Fluoro Time In Minutes: CHEST 2 VIEWS INDICATION / CLINICAL INFORMATION: CP. COMPARISON: None available. FINDINGS: SUPPORT DEVICES: None. HEART / MEDIASTINUM: No significant abnormality. LUNGS / PLEURA: No significant pulmonary or pleural abnormality. No pneum othorax. ADDITIONAL FINDINGS: No significant additional findings. IMPRESSION: 1. No acute findings. Signer Name: Malcolm Turpin MD Signed: 11/30/2020 9:04 PM Workstation Name: [id number] Transcribed By: Dictated By: MALCOLM TURPIN Electronically Authenticated By: MALCOLM TURPIN Signed Date/Time: 11/30/202103 DD/ 03 TD/TT: Patient: GORDO MCNAIR MR#: [id number] : 1995 Acct:[id number] Age/Sex: 25 / F ADM Date: 11/30/20 Loc: ED Attending Dr: Ordering Physician: BLANQUITA VELASQUEZ Date of Service: 11/30/20 Procedure(s): US abdomen limited Accession Number(s): [id number] cc: BLANQUITA VELASQUEZ Abdominal aorta INDICATION: Right upper quadrant pain FINDINGS: Aorta appears normal. Liver, gallbladder appear normal. Common bile duct measures 5 mm. Aorta and visualized IVC appear normal. Main portal vein is patent. Gallbladder wall measures 2 mm. IMPRESSION: No acute findings are seen in the right upper quadrant. Signer Name: Oscar Lance MD Signed: 11/30/2020 10:09 PM Workstation Name: [id number] Transcribed By: Dictated By: VISHNU LANCE MD Electronically Authenticated By: VISHNU LANCE MD Signed Date/Time: 11/30/202208 DD/ 07 TD/TT: Ordering Physician: BLANQUITA VELASQUEZ Date of Service: 11/30/20 Procedure(s): US OB <= 14 weeks fetus Accession Number(s): [id number] cc: BLANQUITA VELASQUEZ ULTRASOUND OBSTETRIC INDICATION / CLINICAL INFORMATION: , abd pain. Clinical Gestational Age (GA): 11 weeks. 6 days TECHNIQUE: Transabdominal. COMPARISON: 12/24/2016 FINDINGS: GESTATIONAL SAC: Well-defined oval shape and intrauterine in location. YOLK SAC: No significant abnormality. EMBRYO/FETUS: Single intrauterine without significant abnormality. - [place]-Rump Length = 5.9 cm = 12 weeks 3.days - Heart Rate, beats per minute (if present) = 161 ADNEXA: Enlarged right ovary measures 4.9 x 2.1 x 4.5 cm with a 3.5 x 1.9 x 3.7 cm complex cystic lesion, likely corpus luteal cyst. The left ovary is within normal limits. FREE FLUID: None. ADDITIONAL FINDINGS: The placenta is anterior, fundal, and free of the os. Cervical length measures 2.7 cm. IMPRESSION: 1. Single, living intrauterine with estimated sonographic age of 12 weeks. 3 days. Signer Name: Malcolm Turpin MD Signed: 11/30/2020 10:30 PM Workstation Name: [id number] Transcribed By: Dictated By: MALCOLM TURPIN Electronically Authenticated By: MALCOLM TURPIN Signed Date/Time: 11/30/202229 DD/ 26 TD/TT: - Medical Decision Making Patient is a 25-year-old female presents emergency room complaints of upper abdominal pain that began earlier today. She states that she sneezed and exacerbated all of her symptoms. she states that the upper abdominal pain radiates up into her chest. she states that she has also had lower back discomfort for a week. She states that when she states that exacerbated her low back pain and occasionally she gets back spasms. She denies any fall or injury. She states that she also has nausea and has been taking Reglan. She denies any shortness of breath, pleuritic chest pain, leg swelling, fever, vomiting, diarrhea, urinary symptoms, abnormal vaginal discharge, vaginal bleeding. She is currently 12 weeks . No past medical history. No allergies to medicines. Vitals are stable. No abdominal tenderness on exam, no guarding, no rebound, no rigidity, normal bowel sounds, no peritoneal signs. EKG is within normal limits. Labs are stable. WBCs have improved from pr evious, LFTs are now normal compared to previous. UA shows 9 white blood cells, no leukocyte esterase, no nitrites, do not suspect UTI. PERC criteria negative for PE. Heart score is 1, chest pain is atypical, do not suspect ACS, likely related to GERD. CXR: 1. No acute findings. abdominal US: No acute findings are seen in the right upper quadrant. OB US:1. Single, living intrauterine with estimated sonographic age of 12 weeks. 3 days. Patient given oral medications while in the emergency department and symptoms improved and she was feeling much better ready go home. She was able tolerate p.o. intake without difficulty. Discussed all results with patient answered questions. Her symptoms are likely related to GERD. Patient states that she is currently taking Reglan for nausea and vomiting, she states that she previously used to take Zofran and prefers that but her insurance company was not covering it. Patient given prescription for Zofran, Pepcid, Maalox, Tylenol. Advised patient Please take medication as prescribed. Increase your water intake. Follow-up with your MARKETING EFFECTIVENESS MANAGER. Return to emergency room for any new or worsening symptoms. Critical care attestation.: If time is entered above; I have spent that time in minutes in the direct care of this critically ill patient, excluding procedure time. ED Disposition Clinical Impression: Atypical chest pain Low back pain Qualifiers: Chronicity: acute Back pain laterality: bilateral Sciatica presence: without sciatica Qualified Code(s): M54.5 - Low back pain Abdominal pain Qualifiers: Abdominal location: upper abdomen, unspecified Qualified Code(s): R10.10 - Upper abdominal pain, unspecified GERD (gastroesophageal reflux disease) Qualifiers: Esophagitis presence: without esophagitis Qualified Code(s): K21.9 - Gastro- esophageal reflux disease without esophagitis Qualifiers: Weeks of gestation: 12 weeks Qualified Code(s): Z3A.12 - 12 weeks gestation of Disposition: -01 TO HOME OR SELFCARE Is pt being admited?: No Does the pt Need Aspirin: No Condition: Stable Instructions: Heartburn During , Abdominal Pain During , [id number], Food Choices for Gastroesophageal Reflux Disease, Adult, Chest Pain (ED) Additional Instructions: Please take medication as prescribed. Increase your water intake. Follow-up with your MARKETING EFFECTIVENESS MANAGER. Return to emergency room for any new or worsening symptoms. Prescriptions: Famotidine [Pepcid] 40 mg PO QHS #30 tablet Mag Hydrox/Aluminum Hyd/Simeth [Maalox Advanced Suspension] 10 ml PO TID PRN #1 bottle PRN Reason: pain/burning/gas Acetaminophen [Tylenol] 650 mg PO Q8HR PRN #20 capsule PRN Reason: pain Ondansetron [Zofran Odt] 4 mg PO Q8HR PRN #10 tab.rapdis PRN Reason: nausea/vomiting Referrals: [facility] [Primary Care Provider] - 2-3 Days Time of Disposition: 22:40 Print Language: CAMEROONIAN HEART Score - HEART Score History: Slightly suspicious EKG: Normal Age: < 45 Risk factors: 1-2 risk factors Troponin: Troponin T < 0.010 ng/mL (0.00-0.029) 11/30/20 20:23 Troponin: < normal limit HEART Score: 1
[2020-11-30 21:00] LABS: Bilirubin,Urine NEG (Negative); Blood,Urine NEG (Negative); Color,Urine Yellow (Yellow); Protein,Urine <15 mg/dL mg/dL (Negative); Urobilinogen,Urine < 2.0 mg/dL (<2.0)
[2020-11-30 21:04] LABS: Alanine Aminotransferase 27 units/L (7-56); Albumin 3.8 g/dL (3.9-5); Blood Urea Nitrogen 12 mg/dL (7-17); Calcium 10.1 mg/dL (8.4-10.2); Hemolysis Index 3
--- NOTE | 2020-11-30 21:09 | XRay Report ---
CHEST 2 VIEWS INDICATION / CLINICAL INFORMATION: CP. COMPARISON: None available. FINDINGS: SUPPORT DEVICES: None. HEART / MEDIASTINUM: No significant abnormality. LUNGS / PLEURA: No significant pulmonary or pleural abnormality. No pneumothorax. ADDITIONAL FINDINGS: No significant additional findings. IMPRESSION: 1. No acute findings. Signer Name: Malcolm Caldwell MD Signed: 11/30/2020 9:04 PM Workstation Name: [id number]
[2020-11-30 21:11] LABS: BUN/Creatinine Ratio 20
--- NOTE | 2020-11-30 22:14 | Ultrasound Report ---
Abdominal aorta INDICATION: Right upper quadrant pain FINDINGS: Aorta appears normal. Liver, gallbladder appear normal. Common bile duct measures 5 mm. Aor ta and visualized IVC appear normal. Main portal vein is patent. Gallbladder wall measures 2 mm. IMPRESSION: No acute findings are seen in the right upper quadrant. Signer Name: Oscar Lance MD Signed: 11/30/2020 10:09 PM Workstation Name: [id number]
--- NOTE | 2020-11-30 22:35 | Ultrasound Report ---
ULTRASOUND OBSTETRIC INDICATION / CLINICAL INFORMATION: , abd pain. Clinical Gestational Age (GA): 11 weeks. 6 days TECHNIQUE: Transabdominal. COMPARISON: 12/24/2016 FINDINGS: GESTATIONAL SAC: Well-defined oval shape and intrauterine in location. YOLK SAC: No significant abnormality. EMBRYO/FETUS: Single intrauterine without significant abnormality. - [place]-Rump Length = 5.9 cm = 12 weeks 3.days - Heart Rate, beats per minute (if present) = 161 ADNEXA: Enlarged right ovary measures 4.9 x 2.1 x 4.5 cm with a 3.5 x 1.9 x 3.7 cm complex cystic les ion, likely corpus luteal cyst. The left ovary is within normal limits. FREE FLUID: None. ADDITIONAL FINDINGS: The placenta is anterior, fundal, and free of the os. Cervical length measures 2 .7 cm. IMPRESSION: 1. Single, living intrauterine with estimated sonographic age of 12 weeks. 3 days. Signer Name: Malcolm Caldwell MD Signed: 11/30/2020 10:30 PM Workstation Name: [id number]
[2020-11-30 23:32] VITALS: BP 141/78
== END 2020-11-30 23:29 | disposition home or self-care (01) ==
LOC: ED 19:15
DX: O99.611 Diseases of the digestive system complicating pregnancy, first trimester (principal); O26.891 Other specified pregnancy related conditions, first trimester; K21.9 Gastro-esophageal reflux disease without esophagitis; R10.10 Upper abdominal pain, unspecified; R07.89 Other chest pain; M54.5 Low back pain; Z3A.12 12 weeks gestation of pregnancy; Z98.890 Other specified postprocedural states; Z79.1 Long term (current) use of non-steroidal anti-inflammatories (NSAID); Z79.899 Other long term (current) drug therapy
CPT/HCPCS: 36415; 71046; 76705; 76801; 80053; 81001; 83690; 84484; 85025; 87086; 93005; Q0162

== ENCOUNTER 2021-05-28 22:44 | Outpatient (CLI) | payer MEDICAID ==
[2021-05-29] MEDS ORDERED: LACTATED RINGERS 1,000 ML ONE (00:50)
[2021-05-29] MEDS ORDERED: LACTATED RINGERS 1,000 ML IV SCH (03:45)
== END 2021-05-29 03:35 | disposition home or self-care (01) ==
LOC: TRG 22:44 → APU 22:46 → TRG 05-29 03:35
PROVIDERS: ATTEND Obstetrics & Gynecology
DX: Z34.93 Encounter for supervision of normal pregnancy, unspecified, third trimester (principal); Z3A.37 37 weeks gestation of pregnancy
CPT/HCPCS: 36415; 59025; 84112; J7120